=== PATIENT | female | born 1940 | race Caucasian/White ===

== ENCOUNTER 2017-04-18 11:39 | Emergency (ER) | payer BC, MEDICARE ==
[~2017-04-18] VITALS: Ht 137.2 cm; Wt 53.0 kg
[2017-04-18 13:00] LABS: BASOPHILS # (AUTO) 0.1 X10'3 (0-0.2); BASOPHILS % (AUTO) 0.6 % (0-1); EOSINOPHILS # (AUTO) 0.5 X10'3 (0-0.9); HEMATOCRIT 43.7 % (35.0-45.0); LYMPHOCYTES # (AUTO) 3.5 X10'3 (1.1-4.8); LYMPHOCYTES % (AUTO) 28.6 % (21-51); MEAN CORPUSCULAR HEMOGLOBIN 30.9 PG (27.0-31.0); MEAN CORPUSCULAR HGB CONC 34.3 % (33.0-36.5); MEAN PLATELET VOLUME 9.7 FL (7.4-10.4); MONOCYTES # (AUTO) 1.1 X10'3 (0-0.9); MONOCYTES % (AUTO) 8.9 % (2-12); NEUTROPHILS # (AUTO) 7.1 X10'3 (1.8-7.7); NEUTROPHILS % (AUTO) 57.9 % (42-75); PLATELET COUNT 238 X10'3 (140-440); RED BLOOD COUNT 4.85 X10'6 (4.20-5.60); RED CELL DISTRIBUTION WIDTH 12.3 % (11.5-14.5); WHITE BLOOD COUNT 12.3 X10'3 (4.5-11.0)
[2017-04-18 13:31] LABS: ALANINE AMINOTRANSFERASE 23 U/L (12-78); ALBUMIN 3.7 G/DL (3.4-5.0); ALBUMIN/GLOBULIN RATIO 0.8 (1.1-1.5); ALKALINE PHOSPHATASE 101 IU/L (46-116); ANION GAP 6 (8-16); ASPARTATE AMINO TRANSFERASE 17 U/L (10-37); BILIRUBIN,TOTAL 0.3 MG/DL (0.1-1.0); BLOOD UREA NITROGEN 31 MG/DL (7-18); BUN/CREATININE RATIO 37.3 (6.6-38.0); CALCIUM 9.8 MG/DL (8.5-10.1); CHLORIDE 104 MMOL/L (99-107); CREATININE 0.83 MG/DL (0.40-0.90); GLUCOSE 94 MG/DL (70-104); POTASSIUM 4.2 MMOL/L (3.5-5.1); SODIUM 141 MMOL/L (135-145); TOTAL CARBON DIOXIDE 30.7 MMOL/L (24-32); TOTAL PROTEIN 8.3 G/DL (6.4-8.2); eGFR 67 ML/MIN
[2017-04-18 13:52] VITALS: BP 167/81
== END 2017-04-18 13:53 | disposition home or self-care (01) ==
LOC: ER 11:39
DX: R60.0 Localized edema (principal); I10 Essential (primary) hypertension; J44.9 Chronic obstructive pulmonary disease, unspecified; G89.29 Other chronic pain; M06.9 Rheumatoid arthritis, unspecified; Z87.891 Personal history of nicotine dependence
CPT/HCPCS: 36415; 71045; 80053; 83880; 84484; 85025; 93005; 99285

== ENCOUNTER 2018-02-13 13:08 | Emergency (ER) | payer BC ==
[~2018-02-13] VITALS: Ht 137.2 cm; Wt 54.1 kg
[2018-02-13 13:11] VITALS: BP 153/74
--- NOTE | 2018-02-13 13:34 | NUR ---
pt to xray.
[2018-02-13] MEDS ORDERED: OXYC-145 PO (14:10)
== END 2018-02-13 14:23 | disposition home or self-care (01) ==
LOC: ER 13:08
DX: R07.89 Other chest pain (principal); I10 Essential (primary) hypertension; J44.9 Chronic obstructive pulmonary disease, unspecified; G89.29 Other chronic pain; Z88.8 Allergy status to other drugs, medicaments and biological substances; Z79.899 Other long term (current) drug therapy
CPT/HCPCS: 71101; 99284

== ENCOUNTER 2018-09-20 00:50 | Emergency (ER) | payer BC ==
[~2018-09-20] VITALS: Ht 137.2 cm; Wt 55.3 kg
[~2018-09-20 00:50] MED LIST: OXYC-145 PO
[2018-09-20 00:52] VITALS: BP 150/69
[2018-09-20] MEDS ORDERED: METH500T PO (01:09)
[2018-09-20] MEDS ORDERED: VAL5T PO (01:09)
== END 2018-09-20 01:29 | disposition home or self-care (01) ==
LOC: ER 00:50
DX: M62.830 Muscle spasm of back (principal); M54.6 Pain in thoracic spine; M54.5 Low back pain; I10 Essential (primary) hypertension; J44.9 Chronic obstructive pulmonary disease, unspecified; G89.29 Other chronic pain; M06.9 Rheumatoid arthritis, unspecified; Z88.1 Allergy status to other antibiotic agents; Z79.899 Other long term (current) drug therapy
CPT/HCPCS: 99283

== ENCOUNTER 2019-04-12 12:48 | Emergency (ER) | payer BC ==
[~2019-04-12 12:48] MED LIST changes: +METH500T PO
[2019-04-12 13:23] LABS: BASOPHILS # (AUTO) 0.1 X10'3 (0-0.2); BASOPHILS % (AUTO) 0.4 % (0-1); EOSINOPHILS # (AUTO) 0.2 X10'3 (0-0.9); EOSINOPHILS % (AUTO) 1.7 % (0-6); HEMOGLOBIN 12.7 g/dl (12.0-16.0); LYMPHOCYTES % (AUTO) 15.8 % (21-51); MEAN CORPUSCULAR HEMOGLOBIN 31.1 PG (27.0-31.0); MEAN CORPUSCULAR HGB CONC 33.4 g/dL (33.0-36.5); MEAN PLATELET VOLUME 9.3 FL (7.4-10.4); MONOCYTES % (AUTO) 7.7 % (2-12); NEUTROPHILS # (AUTO) 9.5 X10'3 (1.8-7.7); NEUTROPHILS % (AUTO) 74.4 % (42-75); PLATELET COUNT 216 X10'3 (140-440); RED BLOOD COUNT 4.09 X10'6 (4.20-5.60); RED CELL DISTRIBUTION WIDTH 12.5 % (11.5-14.5); WHITE BLOOD COUNT 12.8 X10'3 (4.5-11.0)
[2019-04-12 13:41] LABS: ALANINE AMINOTRANSFERASE 19 U/L (12-78); ALBUMIN 3.4 G/DL (3.4-5.0); ALBUMIN/GLOBULIN RATIO 0.9 (1.1-1.5); ALKALINE PHOSPHATASE 79 IU/L (46-116); ANION GAP 7 (8-16); ASPARTATE AMINO TRANSFERASE 12 U/L (10-37); BILIRUBIN,TOTAL 0.4 MG/DL (0.1-1.0); BLOOD UREA NITROGEN 41 MG/DL (7-18); BUN/CREATININE RATIO 36.9 (6.6-38.0); CALCIUM 9.2 MG/DL (8.5-10.1); CHLORIDE 104 MMOL/L (99-107); CREATININE 1.11 MG/DL (0.40-0.90); GLUCOSE 137 MG/DL (70-104); POTASSIUM 4.2 MMOL/L (3.5-5.1); SODIUM 137 MMOL/L (135-145); TOTAL CARBON DIOXIDE 25.8 MMOL/L (24-32); TOTAL PROTEIN 7.3 G/DL (6.4-8.2); eGFR 48 ML/MIN
[2019-04-12] MEDS ORDERED: diphenhydrAMINE 50 mg/ml inj IV ONE (15:15)
[2019-04-12] MEDS ORDERED: normal saline 1000ml 1,000 ML IV ONE (15:15)
[2019-04-12 17:13] VITALS: BP 153/67
[2019-04-13] MEDS ORDERED: NITR100C6 PO (14:35)
== END 2019-04-12 17:49 | disposition home or self-care (01) ==
LOC: ER 12:48
DX: E86.0 Dehydration (principal); F41.9 Anxiety disorder, unspecified; I10 Essential (primary) hypertension; J44.9 Chronic obstructive pulmonary disease, unspecified; G89.29 Other chronic pain; M06.9 Rheumatoid arthritis, unspecified; Z88.8 Allergy status to other drugs, medicaments and biological substances; Z79.899 Other long term (current) drug therapy
CPT/HCPCS: 36415; 71045; 80053; 82948; 84484; 85025; 93005; 96361; 96374; 99285; J1200; J7030

== ENCOUNTER 2019-04-14 21:12 | Emergency (ER) | payer BC ==
[~2019-04-14] VITALS: Ht 137.2 cm; Wt 57.3 kg
[~2019-04-14 21:12] MED LIST changes: +NITR100C6 PO
--- NOTE | 2019-04-14 22:37 | NUR ---
ZEESHAN Vaughn at bedside.
[2019-04-14] MEDS ORDERED: LORazepam 2 mg/ml vial IM ONE (23:00)
--- NOTE | 2019-04-14 23:52 | NUR ---
Pt is resting quietly, not talking. Respirations unlabored. NAD
[2019-04-14] MEDS ORDERED: LORA-269 PO (23:58)
[2019-04-15 00:29] VITALS: BP 150/69
== END 2019-04-15 00:36 | disposition home or self-care (01) ==
LOC: ER 21:12
DX: R25.1 Tremor, unspecified (principal); I10 Essential (primary) hypertension; J44.9 Chronic obstructive pulmonary disease, unspecified; G89.29 Other chronic pain; M06.9 Rheumatoid arthritis, unspecified; Z87.01 Personal history of pneumonia (recurrent); Z88.1 Allergy status to other antibiotic agents
CPT/HCPCS: 96372; 99283; J2060

== ENCOUNTER 2020-04-24 18:34 | Emergency (ER) | payer BC ==
[~2020-04-24] VITALS: Ht 137.2 cm; Wt 53.3 kg
[~2020-04-24 18:34] MED LIST changes: +LORA-269 PO
[2020-04-24 18:48] VITALS: BP 141/74
[2020-04-24] MEDS ORDERED: aspirin 81mg tab.chew PO ONE (18:55)
[2020-04-24 19:45] LABS: BASOPHILS # (AUTO) 0.1 X10'3 (0-0.2); BASOPHILS % (AUTO) 0.6 % (0-1); EOSINOPHILS # (AUTO) 0.3 X10'3 (0-0.9); EOSINOPHILS % (AUTO) 2.6 % (0-6); HEMATOCRIT 39.2 % (35.0-45.0); HEMOGLOBIN 12.9 g/dl (12.0-16.0); LYMPHOCYTES # (AUTO) 2.6 X10'3 (1.1-4.8); LYMPHOCYTES % (AUTO) 22.6 % (21-51); MEAN CORPUSCULAR HEMOGLOBIN 30.9 PG (27.0-31.0); MEAN CORPUSCULAR HGB CONC 32.8 g/dL (33.0-36.5); MEAN CORPUSCULAR VOLUME 94.2 FL (78-98); MEAN PLATELET VOLUME 9.5 FL (7.4-10.4); MONOCYTES # (AUTO) 1.3 X10'3 (0-0.9); NEUTROPHILS # (AUTO) 7.2 X10'3 (1.8-7.7); NEUTROPHILS % (AUTO) 63.2 % (42-75); PLATELET COUNT 204 X10'3 (140-440); RED BLOOD COUNT 4.16 X10'6 (4.20-5.60); RED CELL DISTRIBUTION WIDTH 12.6 % (11.5-14.5); WHITE BLOOD COUNT 11.5 X10'3 (4.5-11.0)
[2020-04-24 19:48] LABS: ALANINE AMINOTRANSFERASE 18 U/L (12-78); ALBUMIN 3.4 G/DL (3.4-5.0); ALBUMIN/GLOBULIN RATIO 0.9 (1.1-1.5); ALKALINE PHOSPHATASE 78 IU/L (46-116); ANION GAP 10 (8-16); ASPARTATE AMINO TRANSFERASE 17 U/L (10-37); BILIRUBIN,TOTAL 0.2 MG/DL (0.1-1.0); BLOOD UREA NITROGEN 33 MG/DL (7-18); BUN/CREATININE RATIO 24.3 (6.6-38.0); CALCIUM 9.2 MG/DL (8.5-10.1); CHLORIDE 106 MMOL/L (99-107); CREATININE 1.36 MG/DL (0.40-0.90); GLUCOSE 133 MG/DL (70-104); POTASSIUM 3.8 MMOL/L (3.5-5.1); SODIUM 142 MMOL/L (135-145); TOTAL CARBON DIOXIDE 26.5 MMOL/L (24-32); TOTAL PROTEIN 7.3 G/DL (6.4-8.2); eGFR 38 ML/MIN
[2020-04-24 19:56] LABS: MAGNESIUM 2.1 MG/DL (1.5-2.4)
== END 2020-04-24 20:35 | disposition home or self-care (01) ==
LOC: ER 18:35
DX: R00.2 Palpitations (principal); R07.89 Other chest pain; R06.02 Shortness of breath; I48.91 Unspecified atrial fibrillation; I10 Essential (primary) hypertension; J44.9 Chronic obstructive pulmonary disease, unspecified; G89.29 Other chronic pain; M81.0 Age-related osteoporosis without current pathological fracture; M06.9 Rheumatoid arthritis, unspecified; Z87.01 Personal history of pneumonia (recurrent); Z88.8 Allergy status to other drugs, medicaments and biological substances; Z79.899 Other long term (current) drug therapy
CPT/HCPCS: 36415; 71045; 80053; 83735; 83880; 84484; 85025; 93005; 99285

== ENCOUNTER 2020-07-16 00:30 | Emergency (ER) | payer BC ==
[~2020-07-16] VITALS: Ht 137.2 cm; Wt 55.1 kg
[2020-07-16 05:03] LABS: ALBUMIN 3.4 G/DL (3.4-5.0); ANION GAP 7 (8-16); BASOPHILS # (AUTO) 0.1 X10'3 (0-0.2); BLOOD UREA NITROGEN 24 MG/DL (7-18); BUN/CREATININE RATIO 21.1 (6.6-38.0); CHLORIDE 105 MMOL/L (99-107); CREATININE 1.14 MG/DL (0.40-0.90); EOSINOPHILS # (AUTO) 0.4 X10'3 (0-0.9); EOSINOPHILS % (AUTO) 4.3 % (0-6); GLUCOSE 95 MG/DL (70-104); HEMATOCRIT 40.3 % (35.0-45.0); HEMOGLOBIN 13.5 g/dl (12.0-16.0); LYMPHOCYTES # (AUTO) 2.2 X10'3 (1.1-4.8); MAGNESIUM 2.2 MG/DL (1.5-2.4); MEAN CORPUSCULAR HGB CONC 33.4 g/dL (33.0-36.5); MEAN CORPUSCULAR VOLUME 92.8 FL (78-98); MEAN PLATELET VOLUME 9.4 FL (7.4-10.4); MONOCYTES # (AUTO) 0.9 X10'3 (0-0.9); MONOCYTES % (AUTO) 10.5 % (2-12); NEUTROPHILS # (AUTO) 5.2 X10'3 (1.8-7.7); NEUTROPHILS % (AUTO) 59.2 % (42-75); PLATELET COUNT 205 X10'3 (140-440); POTASSIUM 3.9 MMOL/L (3.5-5.1); RED BLOOD COUNT 4.34 X10'6 (4.20-5.60); RED CELL DISTRIBUTION WIDTH 13.3 % (11.5-14.5); SODIUM 141 MMOL/L (135-145); TOTAL CARBON DIOXIDE 29.1 MMOL/L (24-32); WHITE BLOOD COUNT 8.8 X10'3 (4.5-11.0); eGFR 46 ML/MIN
[2020-07-16 05:11] LABS: CALCIUM 9.1 MG/DL (8.5-10.1)
[2020-07-16 05:40] VITALS: BP 189/91
== END 2020-07-16 05:43 | disposition home or self-care (01) ==
LOC: ER 00:31
DX: I48.0 Paroxysmal atrial fibrillation (principal); J44.9 Chronic obstructive pulmonary disease, unspecified; M81.0 Age-related osteoporosis without current pathological fracture; G89.29 Other chronic pain; M06.9 Rheumatoid arthritis, unspecified; I10 Essential (primary) hypertension; Z87.891 Personal history of nicotine dependence; Z88.1 Allergy status to other antibiotic agents; Z79.899 Other long term (current) drug therapy; Z87.01 Personal history of pneumonia (recurrent)
CPT/HCPCS: 36415; 71045; 80048; 83735; 85025; 93005; 99285

== ENCOUNTER 2020-10-09 19:28 | Emergency (ER) | payer BC ==
[~2020-10-09] VITALS: Ht 137.2 cm; Wt 54.5 kg
[2020-10-09] MEDS ORDERED: lisinopril 10 MG tablet PO ONE (20:40)
[2020-10-09 21:46] VITALS: BP 182/85
== END 2020-10-09 21:55 | disposition home or self-care (01) ==
LOC: ER 19:29
DX: I10 Essential (primary) hypertension (principal); J44.9 Chronic obstructive pulmonary disease, unspecified; G89.29 Other chronic pain; Z87.01 Personal history of pneumonia (recurrent); Z88.1 Allergy status to other antibiotic agents; Z79.899 Other long term (current) drug therapy
CPT/HCPCS: 93005; 99283

== ENCOUNTER 2022-04-06 10:45 | Emergency (ER) | payer BC ==
[~2022-04-06] VITALS: Ht 137.2 cm; Wt 56.8 kg
[2022-04-06] MEDS ORDERED: lisinopril 10 MG tablet PO ONE (11:30)
[2022-04-06 13:15] VITALS: BP 185/81
== END 2022-04-06 13:00 | disposition home or self-care (01) ==
LOC: ER 10:45
DX: I10 Essential (primary) hypertension (principal); I11.9 Hypertensive heart disease without heart failure; J44.9 Chronic obstructive pulmonary disease, unspecified; Z88.1 Allergy status to other antibiotic agents; Z79.899 Other long term (current) drug therapy
CPT/HCPCS: 93005; 99283

== ENCOUNTER 2022-04-23 19:06 | Emergency (ER) | payer BC ==
[~2022-04-23] VITALS: Ht 137.2 cm; Wt 57.6 kg
[2022-04-23 20:08] LABS: BASOPHILS # (AUTO) 0.1 X10'3 (0-0.2); BASOPHILS % (AUTO) 0.8 % (0-1); EOSINOPHILS # (AUTO) 0.5 X10'3 (0-0.9); EOSINOPHILS % (AUTO) 3.3 % (0-6); HEMATOCRIT 42.4 % (35.0-45.0); LYMPHOCYTES # (AUTO) 2.2 X10'3 (1.1-4.8); LYMPHOCYTES % (AUTO) 13.9 % (21-51); MEAN CORPUSCULAR HEMOGLOBIN 29.7 PG (27.0-31.0); MEAN CORPUSCULAR VOLUME 89.9 FL (78-98); MEAN PLATELET VOLUME 8.7 FL (7.4-10.4); MONOCYTES # (AUTO) 1.2 X10'3 (0-0.9); MONOCYTES % (AUTO) 7.4 % (2-12); NEUTROPHILS # (AUTO) 11.8 X10'3 (1.8-7.7); NEUTROPHILS % (AUTO) 74.6 % (42-75); PLATELET COUNT 249 X10'3 (140-440); RED BLOOD COUNT 4.71 X10'6 (4.20-5.60); RED CELL DISTRIBUTION WIDTH 13.4 % (11.5-14.5); WHITE BLOOD COUNT 15.7 X10'3 (4.5-11.0)
[2022-04-23 20:23] LABS: ALANINE AMINOTRANSFERASE 14 U/L (12-78); ALBUMIN 3.8 G/DL (3.4-5.0); ALBUMIN/GLOBULIN RATIO 0.8 (1.1-1.5); ALKALINE PHOSPHATASE 119 IU/L (46-116); ANION GAP 10 (8-16); ASPARTATE AMINO TRANSFERASE 23 U/L (10-37); BILIRUBIN,TOTAL 0.4 MG/DL (0.1-1.0); BLOOD UREA NITROGEN 37 MG/DL (7-18); BUN/CREATININE RATIO 29.8 (6.6-38.0); CALCIUM 9.5 MG/DL (8.5-10.1); CHLORIDE 104 MMOL/L (99-107); CREATININE 1.24 MG/DL (0.40-0.90); GLUCOSE 111 MG/DL (70-104); POTASSIUM 4.5 MMOL/L (3.5-5.1); SODIUM 140 MMOL/L (135-145); TOTAL CARBON DIOXIDE 26.3 MMOL/L (24-32); TOTAL PROTEIN 8.3 G/DL (6.4-8.2); eGFR 42 ML/MIN
[2022-04-24] MEDS ORDERED: cloNIDine 0.1 mg tablet PO ONE (00:25)
[2022-04-24 01:00] VITALS: BP_DIAS 75
[2022-04-24] MEDS ORDERED: CLON-418 PO (01:29)
[2022-04-24 01:42] VITALS: BP_SYST 134
== END 2022-04-24 01:47 | disposition home or self-care (01) ==
LOC: ER 19:06
DX: I10 Essential (primary) hypertension (principal); J44.9 Chronic obstructive pulmonary disease, unspecified; Z88.1 Allergy status to other antibiotic agents
CPT/HCPCS: 36415; 71045; 80053; 83880; 84484; 85025; 93005; 99285

== ENCOUNTER 2022-10-01 19:25 | Inpatient (IN) | payer BC ==
[~2022-10-01] VITALS: Ht 139.7 cm; Wt 49.1 kg
[~2022-10-01 19:25] MED LIST changes: +CLON-418 PO
[2022-10-01 19:48] LABS: BASOPHILS # (AUTO) 0.1 X10'3 (0-0.2); EOSINOPHILS # (AUTO) 0.3 X10'3 (0-0.9); EOSINOPHILS % (AUTO) 2.4 % (0-6); HEMATOCRIT 43.7 % (35.0-45.0); HEMOGLOBIN 14.4 g/dl (12.0-16.0); LYMPHOCYTES # (AUTO) 3.1 X10'3 (1.1-4.8); LYMPHOCYTES % (AUTO) 24.6 % (21-51); MEAN CORPUSCULAR HEMOGLOBIN 30.7 PG (27.0-31.0); MEAN CORPUSCULAR VOLUME 93.1 FL (78-98); MEAN PLATELET VOLUME 10.1 FL (7.4-10.4); MONOCYTES # (AUTO) 1.1 X10'3 (0-0.9); MONOCYTES % (AUTO) 8.7 % (2-12); NEUTROPHILS % (AUTO) 63.3 % (42-75); PLATELET COUNT 264 X10'3 (140-440); RED BLOOD COUNT 4.69 X10'6 (4.20-5.60); RED CELL DISTRIBUTION WIDTH 13.9 % (11.5-14.5); WHITE BLOOD COUNT 12.7 X10'3 (4.5-11.0)
[2022-10-01] MEDS: normal saline 1000ml 1,000 ML IV SCH ×4 (19:48→23:50)
[2022-10-01] MEDS ORDERED: diltiazem 5mg/ml 5ml inj. IV ONE ×2 (19:50)
[2022-10-01] MEDS ORDERED: diltiazem-NS 100mg/100ml 100 ML IV PRN (20:00)
--- NOTE | 2022-10-01 20:10 | NUR ---
Dr Cunningham asked dfor a repeat EKG
[2022-10-01 20:19] LABS: ALANINE AMINOTRANSFERASE 15 U/L (12-78); ALBUMIN 3.4 G/DL (3.4-5.0); ALKALINE PHOSPHATASE 128 IU/L (46-116); ANION GAP 11 (8-16); ASPARTATE AMINO TRANSFERASE 17 U/L (10-37); BILIRUBIN,TOTAL 0.3 MG/DL (0.1-1.0); BLOOD UREA NITROGEN 40 MG/DL (7-18); BUN/CREATININE RATIO 34.8 (10.0-20.0); CALCIUM 9.6 MG/DL (8.5-10.1); CHLORIDE 107 MMOL/L (99-107); CREATININE 1.15 MG/DL (0.40-0.90); GLUCOSE 108 MG/DL (70-104); POTASSIUM 4.5 MMOL/L (3.5-5.1); SODIUM 142 MMOL/L (135-145); TOTAL CARBON DIOXIDE 24.3 MMOL/L (24-32); TOTAL PROTEIN 6.9 G/DL (6.4-8.2); eCRCL 21 ML/MIN; eGFR 46 ML/MIN
[2022-10-01 20:27] LABS: MAGNESIUM 1.9 MG/DL (1.5-2.4); PRO BRAIN NATRIURETIC PEPTIDE 656 PG/ML (0-450)
[2022-10-01 20:32] LABS: APTT 25 SECONDS (22-32); PROTHROMBIN TIME 10.3 SECONDS (9.0-12.0)
[2022-10-01] MEDS ORDERED: aspirin 81mg tab.chew PO ONE (22:15)
[2022-10-01] MEDS ORDERED: potassium Cl 40MEQ/1/2NS 520ml 520 ML IV PRN (23:35)
[2022-10-01] MEDS ORDERED: ondansetron/PF 4mg/2ml inj IV PRN (23:35)
[2022-10-01] MEDS ORDERED: mag hydrox/Alum hydrox/simeth 30ml oral suspension PO PRN (23:35)
[2022-10-01] MEDS ORDERED: magnesium 2GM in 50ml NS 50 ML IV PRN (23:35)
[2022-10-01] MEDS ORDERED: magnesium 4gm in 100ml NS 100 ML IV PRN (23:35)
[2022-10-01] MEDS ORDERED: potassium Cl 20 mEq SR tablet PO PRN ×2 (23:35)
[2022-10-01] MEDS ORDERED: acetaminophen 325mg tablet PO PRN (23:35)
--- NOTE | 2022-10-01 23:52 | NUR ---
ED BED 15--HR WELL CONTROLLED IN 60S DO YOU STILL WANT EVAN BOWMAN? [id number] PAGE SENT TO DR LIN
[2022-10-02] MEDS ORDERED: LISI20TA28 PO (00:05)
[2022-10-02] MEDS ORDERED: CELE-85 PO (00:05)
[2022-10-02] MEDS ORDERED: FLO0.1T PO (00:05)
[2022-10-02] MEDS ORDERED: FLUT1BLS10 PO (00:05)
[2022-10-02] MEDS ORDERED: DILT-96 PO (00:05)
[2022-10-02] MEDS ORDERED: HYDR5TAB14 PO (00:05)
[2022-10-02] MEDS ORDERED: CITA10TA15 PO (00:45)
--- NOTE | 2022-10-02 01:30 | NUR ---
ED BED 15--TROPONIN 64 [id number]
--- NOTE | 2022-10-02 01:31 | NUR ---
DR LIN AWARE OF POSITIVE TROPONIN, NO NEW ORDERS
[2022-10-02 03:06] VITALS: PULSE 65; RESP 16; O2SAT 97
--- NOTE | 2022-10-02 03:19 | NUR ---
PT PLACED ON HOSPITAL BED
[2022-10-02 07:44] VITALS: TEMP 97.9
[2022-10-02] MEDS ORDERED: budesonide 0.5mg/2ml UD nebule IH SCH (08:00)
[2022-10-02] MEDS ORDERED: apixaban 5mg tablet PO SCH (08:00)
[2022-10-02] MEDS ORDERED: hydrocortisone 10mg tablet PO SCH (08:00)
[2022-10-02] MEDS: albuterol 2.5 MG/3 ML nebule NEB SCH ×2 (08:00→14:00)
[2022-10-02] MEDS ORDERED: diltiazem CD 120mg capsule (once-daily) PO SCH (08:00)
[2022-10-02] MEDS ORDERED: fludrocortisone acetate 0.1mg tablet PO SCH (08:00)
[2022-10-02] MEDS ORDERED: docusate sod 100mg capsule PO SCH (08:00)
[2022-10-02] MEDS ORDERED: K and/or MAG REPLACEMENT MC SCH (08:00)
[2022-10-02] MEDS ORDERED: lisinopril 20mg tablet PO SCH (08:00)
[2022-10-02] MEDS ORDERED: normal saline 1000ml 1,000 ML IV SCH (08:50)
[2022-10-02 08:54] VITALS: PULSE 56; RESP 16; O2SAT 96
[2022-10-02 09:05] VITALS: PULSE 61; RESP 16
[2022-10-02 09:58] LABS: BASOPHILS # (AUTO) 0.1 X10'3 (0-0.2); BASOPHILS % (AUTO) 0.9 % (0-1); EOSINOPHILS # (AUTO) 0.3 X10'3 (0-0.9); EOSINOPHILS % (AUTO) 3.4 % (0-6); HEMATOCRIT 38.2 % (35.0-45.0); HEMOGLOBIN 12.6 g/dl (12.0-16.0); LYMPHOCYTES # (AUTO) 2.6 X10'3 (1.1-4.8); LYMPHOCYTES % (AUTO) 27.1 % (21-51); MEAN CORPUSCULAR HEMOGLOBIN 30.7 PG (27.0-31.0); MEAN CORPUSCULAR HGB CONC 32.9 g/dL (33.0-36.5); MEAN CORPUSCULAR VOLUME 93.2 FL (78-98); MONOCYTES # (AUTO) 0.9 X10'3 (0-0.9); MONOCYTES % (AUTO) 9.3 % (2-12); NEUTROPHILS # (AUTO) 5.8 X10'3 (1.8-7.7); NEUTROPHILS % (AUTO) 59.3 % (42-75); PLATELET COUNT 215 X10'3 (140-440); RED CELL DISTRIBUTION WIDTH 13.5 % (11.5-14.5); WHITE BLOOD COUNT 9.8 X10'3 (4.5-11.0)
[2022-10-02 10:24] LABS: ALANINE AMINOTRANSFERASE 18 U/L (12-78); ALBUMIN 2.7 G/DL (3.4-5.0); ALBUMIN/GLOBULIN RATIO 0.8 (1.1-1.5); ALKALINE PHOSPHATASE 96 IU/L (46-116); ANION GAP 6 (8-16); ASPARTATE AMINO TRANSFERASE 16 U/L (10-37); BILIRUBIN,TOTAL 0.4 MG/DL (0.1-1.0); BLOOD UREA NITROGEN 28 MG/DL (7-18); BUN/CREATININE RATIO 28.3 (10.0-20.0); CALCIUM 8.6 MG/DL (8.5-10.1); CHLORIDE 110 MMOL/L (99-107); CREATININE 0.99 MG/DL (0.40-0.90); GLUCOSE 93 MG/DL (70-104); MAGNESIUM 1.6 MG/DL (1.5-2.4); POTASSIUM 3.8 MMOL/L (3.5-5.1); SODIUM 142 MMOL/L (135-145); TOTAL PROTEIN 5.9 G/DL (6.4-8.2); eCRCL 25 ML/MIN; eGFR 54 ML/MIN
[2022-10-02] MEDS: normal saline 1000ml 1,000 ML IV SCH (12:08)
[2022-10-02] MEDS ORDERED: APIX5TAB3 PO (13:32)
[2022-10-02 14:58] VITALS: BP 164/74; PULSE 54; RESP 16; O2SAT 94
[2022-10-02] MEDS ORDERED: CITALOpram 10mg tablet PO SCH (21:00)
== END 2022-10-02 16:05 | disposition home or self-care (01) | DRG 309 ==
LOC: ER 19:25 → ED HOLD 23:39
PROVIDERS: ADMIT Family Medicine; ATTEND Family Medicine
DX: I48.0 Paroxysmal atrial fibrillation (principal); E27.40 Unspecified adrenocortical insufficiency; J44.9 Chronic obstructive pulmonary disease, unspecified; D72.829 Elevated white blood cell count, unspecified; I10 Essential (primary) hypertension; M06.9 Rheumatoid arthritis, unspecified; M81.0 Age-related osteoporosis without current pathological fracture; N28.9 Disorder of kidney and ureter, unspecified; Z96.641 Presence of right artificial hip joint; G89.29 Other chronic pain; Z79.01 Long term (current) use of anticoagulants; Z88.8 Allergy status to other drugs, medicaments and biological substances; Z79.899 Other long term (current) drug therapy; Z87.891 Personal history of nicotine dependence
CPT/HCPCS: 36415; 71045; 80053; 83735; 83880; 84484; 85025; 85610; 85730; 93005; 93306; 94640; 94760; 99285; G0378; J3490; J7030

== ENCOUNTER 2023-01-24 22:12 | Emergency (ER) | payer BC ==
[~2023-01-24] VITALS: Ht 137.2 cm; Wt 50.1 kg
[~2023-01-24 22:12] MED LIST changes: +APIX5TAB3 PO; +CITA10TA15 PO; -CLON-418 PO; +DILT-96 PO; +FLO0.1T PO; +FLUT1BLS10 PO; +HYDR5TAB14 PO; +LISI20TA28 PO; -LORA-269 PO; -METH500T PO; -NITR100C6 PO; -OXYC-145 PO
[2023-01-25 01:19] VITALS: BP 146/78; PULSE 78; RESP 16; TEMP 98.1; O2SAT 94
== END 2023-01-25 01:16 | disposition home or self-care (01) ==
LOC: ER 22:14
DX: I11.0 Hypertensive heart disease with heart failure (principal); R51.9 Headache, unspecified; G89.29 Other chronic pain; Z88.1 Allergy status to other antibiotic agents; Z79.899 Other long term (current) drug therapy
CPT/HCPCS: 99281

== ENCOUNTER 2024-08-11 17:48 | Emergency (ER) | payer BC ==
[~2024-08-11] VITALS: Ht 137.2 cm; Wt 46.5 kg
[~2024-08-11 17:48] MED LIST changes: +APIX2.5T PO; -APIX5TAB3 PO; +ASPI-1265 PO; +DILT-94 PO; -DILT-96 PO; -FLO0.1T PO; +FLUD0.1T PO; -FLUT1BLS10 PO; +FLUT1BLS13 INH; +HYDR-4318 PO; -HYDR5TAB14 PO; +SOLI5TAB8 PO
[2024-08-11 17:50] VITALS: BP 126/84; PULSE 75; RESP 15; TEMP 97.1; O2SAT 95
--- NOTE | 2024-08-11 18:45 | Physician Documentation ---
History of Present Illness ~ Chief Complaint: Constipation Stated Complaint: BOWEL ISSUES Time Seen by MD: 18:01 Primary Medical Doctor: Chilango Rosales [facility] This is an 83-year-old female who presents with three days of constipation with the last bowel movement three days prior, patient reports in the last month that she has had very hard stools. Patient reports that due to having hard stools she has decreased her fiber intake. Patient does report she feels like she does not drink enough water. Patient reports no fever, abdominal pain, or vomiting. Patient reports that she is still passing gas. Medication Reconciliation Allergies: Coded Allergies: levofloxacin (Verified Allergy, Unknown, RASH, 08/11/24) Scheduled Apixaban (Eliquis), 2.5 MG PO BID Aspirin (Aspirin), 1 TAB PO DAILY Citalopram Hydrobromide (Citalopram HBr), 15 MG PO HS, (Reported) Diltiazem HCl (Diltiazem 24Hr ER), 1 CAP PO DAILY, (Reported) Docusate Sodium (Docusate Sodium), 1 CAP PO DAILY Fludrocortisone Acetate (Fludrocortisone Acetate), 1 TAB PO DAILY, (Reported) Fluticasone Propion/Salmeterol (Fluticasone-Salmeterol 250-50), 1 PUFFS INH BID, (Reported) Glycerin (Glycerin), 1 SUPP RC Q48H Hydrocortisone (Hydrocortisone), 1 TAB PO BID, (Reported) Lisinopril (Lisinopril), 1 TAB PO DAILY, (Reported) Polyethylene Glycol 3350 (Miralax), 17 GM PO DAILY Solifenacin Succinate (Solifenacin Succinate), 1 TAB PO DAILY, (Reported) Past Medical History Past Medical History: Atrial Fibrillation, Hypertension, COPD, Pneumonia, Chronic Pain, Osteoporosis, Rheumatoid Arthritis Past Surgical History: orthopedic surgeries Patient History: Patient reports no known family medical history. Alcohol Use: None Drug Use: none Lives with: Family Lives In: Home Review of Systems ROS Constipation as stated above in the HPI, otherwise all systems are reviewed and negative. Physical Exam Vital Signs: Temperature: 97.1, Source: Temporal, Heart Rate: 75, Respiratory Rate: 15, BP: 126/84, Pulse Oximetry: 95, Weight: 46.550 Physical Exam VITALS: Reviewed and as above. GENERAL: Alert, nontoxic appearing, no apparent distress. RESPIRATORY: No increased work of breathing, no respiratory distress, speaking in full clear sentences, clear lung sounds in all cowan CV: Regular rate and rhythm no murmur GI: Soft, nondistended, nontender, no rebound, no guarding, bowel sounds present Progress Results/Orders Results/Orders Vital Signs 08/11/24 17:50 Temp 97.1 Pulse 75 Resp 15 B/P (MAP) 126/84 Pulse Ox 95 Medical Decision Making Findings This 83-year-old female presented with hard stools and constipation with last bowel movement three days prior. Patient is otherwise well-appearing with no abdominal pain, believe constipation is related to patient's decrease in fiber him taken poor fluid intake. Patient has been advised to increase fiber and fluid intake. Patient offered the option to have treatment for constipation to the emergency department and we have for her have a bowel movement however she prefers to treat constipation comfort her own home. Patient is sent prescription for laxatives and stool softeners. Physical exam was benign no peritoneal signs, additionally reassuring patient is passing gas, I have very low suspicion for stool impaction or bowel obstruction. Patient is appropriate for outpatient follow up. Patient provided home care instructions, return to care precautions, and follow up instructions which he verbalized understanding of. Diff Dx N/V/D:Considerations: Include: Appendicitis, Bowel obstruction, Dehydration, Diverticulosis, Impaction Departure Disposition: 01 HOME / SELF CARE / HOMELESS Impression: Primary Impression: Constipation Qualified Codes: K59.00 - Constipation, unspecified Condition: Improved Discharge Instructions: Constipation, Adult Additional Instructions: Please increase your fluid and fiber intake, you may consider utilizing a fiber supplement. Please use the prescribed stool softeners daily. Please use the prescribed laxative and suppositories until you a bowel movement. If you continue to you to not have a bowel movement or you develop abdominal pain please return to the emergency department. Please follow up with your primary care provider in the next few days. Please return to the emergency department for any new or worsening concerning symptoms. Referrals: NO PRIMARY CARE PROVIDER (PCP) Prescriptions Glycerin (Glycerin) Pediatric Supp.rect 1 SUPP RC Q48H for 7 Days, #15 SUPP 0 Refills Prov: HARSHAL ATKINSON [employer] 08/11/24 Polyethylene Glycol 3350 (Miralax) 17 Gram/Dose Powder 17 GM PO DAILY for constipation, #255 GM 0 Refills dissolve in water Prov: HARSHAL ATKINSON 08/11/24 Docusate Sodium (Docusate Sodium) 100 Mg Caps 1 CAP PO DAILY for constipation for 30 Days, #30 CAP 0 Refills Prov: HARSHAL ATKINSON [employer] 08/11/24 Education Educated: Patient Educated regarding: diagnosis, treatment, prognosis, need for follow up Signature Scribe Signature: No scribe Attestation: The note accurately reflects work and decisions made by me.MINA Chong 08/11/24 20:48 HARSHAL ATKINSON [facility] Aug 11, 2024 18:45
[2024-08-11] MEDS ORDERED: GLYC-23 RC (18:48)
[2024-08-11] MEDS ORDERED: DOCU100C40 PO (18:48)
[2024-08-11] MEDS ORDERED: POLY119P2 PO (18:48)
== END 2024-08-11 19:01 | disposition home or self-care (01) ==
LOC: ER 17:48
DX: K59.00 Constipation, unspecified (principal); I10 Essential (primary) hypertension; I48.91 Unspecified atrial fibrillation; J44.9 Chronic obstructive pulmonary disease, unspecified; M06.9 Rheumatoid arthritis, unspecified; M81.0 Age-related osteoporosis without current pathological fracture; Z88.1 Allergy status to other antibiotic agents; Z79.82 Long term (current) use of aspirin; Z88.8 Allergy status to other drugs, medicaments and biological substances
CPT/HCPCS: 99282

== ENCOUNTER 2025-01-28 06:01 | Inpatient (IN) | payer BC ==
[~2025-01-28] VITALS: Ht 137.2 cm; Wt 52.0 kg
[~2025-01-28 06:01] MED LIST changes: +DOCU100C40 PO; +GLYC-23 RC; +POLY119P2 PO
--- NOTE | 2025-01-28 06:21 | ELECTROCARDIOGRAPH REPORT ---
[facility] Test Date: 2025-01-28 Test Time: 06:20:23 Pat Name: MELINA SZYMANSKI Department: [facility]- Patient ID: [facility]-[id number] Room: [place] [id number] Gender: F Physician Interventional Cardiologist: MODESTA : 1940 Requested By: NIKOLAI EASTON Order Number: [id number] Reading MD: Dr. Piotr Cunningham Measurements Intervals Jackson Rate: 70 P: 0 MN: 0 QRS: -14 QRSD: 79 T: 72 QT: 393 QTc: 425 Interpretive Statements Atrial fibrillation Consider left ventricular hypertrophy Electronically Signed On 02-01-2025 0:20:[address] Piotr Cunningham Please click the below link to view image of tracing.
--- NOTE | 2025-01-28 07:14 | RADIOLOGY REPORT ---
CHEST RADIOGRAPH INDICATION: Cough TECHNIQUE: Two views of the chest was obtained. COMPARISON: DI CHEST,SINGLE VIEW on DOS: 05/15/24, DI CHEST,SINGLE VIEW on DOS: 10/01/22 FINDINGS: Patchy right basilar opacities. No significant pleural effusion. No pneumothorax. Stable cardiomediastinal silhouette. IMPRESSION: Patchy right basilar opacities may represent atelectasis versus developing pneumonia.
[2025-01-28 09:10] LABS: CREATININE 1.35 MG/DL (0.40-0.90); PRO BRAIN NATRIURETIC PEPTIDE 259 PG/ML (0-450); TOTAL CARBON DIOXIDE 25.3 MMOL/L (24-32); eCRCL 16 ML/MIN; eGFR 38 ML/MIN
[2025-01-28 10:06] LABS: MEAN PLATELET VOLUME 9.2 FL (7.4-10.4); RED CELL DISTRIBUTION WIDTH 13.5 % (11.5-14.5)
--- NOTE | 2025-01-28 10:37 | Physician Documentation ---
History of Present Illness ~ Chief Complaint: Weakness Stated Complaint: MULTIPLE ISSUES Time Seen by MD: 10:23 OK to notify your PCP?: Yes Primary Medical Doctor: Chilango JACOBS The patient is a an 84-year-old female with a history of COPD (she has an oxygen concentrator that she uses as needed), atrial fibrillation (takes diltiazem but no blood thinners) who has been feeling weak and dizzy for the past few days. She denies any falls. Medication Reconciliation Allergies: Coded Allergies: levofloxacin (Verified Allergy, Unknown, RASH, 08/11/24) Scheduled Apixaban (Eliquis), 2.5 MG PO BID Aspirin (Aspirin), 1 TAB PO DAILY Citalopram Hydrobromide (Citalopram HBr), 15 MG PO HS, (Reported) Diltiazem HCl (Diltiazem 24Hr ER), 1 CAP PO DAILY, (Reported) Docusate Sodium (Docusate Sodium), 1 CAP PO DAILY Fludrocortisone Acetate (Fludrocortisone Acetate), 1 TAB PO DAILY, (Reported) Fluticasone Propion/Salmeterol (Fluticasone-Salmeterol 250-50), 1 PUFFS INH BID, (Reported) Glycerin (Glycerin), 1 SUPP RC Q48H Hydrocortisone (Hydrocortisone), 1 TAB PO BID, (Reported) Lisinopril (Lisinopril), 1 TAB PO DAILY, (Reported) Polyethylene Glycol 3350 (Miralax), 17 GM PO DAILY Solifenacin Succinate (Solifenacin Succinate), 1 TAB PO DAILY, (Reported) Past Medical History Past Medical History: Atrial Fibrillation, Hypertension, COPD, Pneumonia, Chronic Pain, Osteoporosis, Rheumatoid Arthritis Past Surgical History: orthopedic surgeries Patient History: Patient reports no known family medical history. Alcohol Use: None Drug Use: none Lives with: Family Lives In: Home Physical Exam Vital Signs: Temperature: 98.0, Heart Rate: 79, Respiratory Rate: 16, BP: 153/64, Pulse Oximetry: 92, Weight: 52.000 Oxygen Flow Rate: 0 Progress Results/Orders Results/Orders Orders - MALCOLM HILARIO MD Hospitalist (01/28/25 15:16) Completed Orders - MALCOLM HILARIO MD Ceftriaxone 2gm/D5w 50ml Bag (Rocephin 2 (01/28/25 10:40) Azithromycin/Ns 500mg/250ml (Zithromax/N (01/28/25 10:40) Ipratropium/Albuterol Nebule (Ipratrop/A (01/28/25 10:37) Methylprednisolone Sod Succ/Pf (Solu-Med (01/28/25 10:37) Hydrocortisone Tablet (Hydrocortisone Ta (01/28/25 12:41) Normal Saline 1000ml (0.9% Sodium Chlori (01/28/25 15:10) Medications Received in ER Medications (Trade) Dose Ordered Sig/Octaviano Route PRN Reason Start Time Stop Time Status Last Admin Dose Admin Ceftriaxone Sodium/Dextrose 50 ml @ 100 mls/hr ONCE ONCE IV 01/28/25 10:40 01/28/25 11:09 DC 01/28/25 11:26 100 MLS/HR Azithromycin 250 ml @ 250 mls/hr ONCE ONCE IV 01/28/25 10:40 01/28/25 11:39 DC 01/28/25 12:01 250 MLS/HR (ipratrop/ albuterol 0.5-3(2.5) MG/3ml nebule) 3 ml ONCE STAT NEB 01/28/25 10:37 01/28/25 10:40 DC 01/28/25 11:07 3 ML (Solu-Medrol 40mg inj.) 80 mg ONCE STAT IV 01/28/25 10:37 01/28/25 10:40 DC 01/28/25 11:26 80 MG (hydrocortisone tablet) 10 mg ONCE STAT PO 01/28/25 12:41 01/28/25 12:48 DC 01/28/25 13:30 10 MG Sodium Chloride 1,000 ml @ 1,000 mls/hr ONCE ONCE IV 01/28/25 15:10 01/28/25 16:09 01/28/25 15:49 1,000 MLS/HR Vital Signs 01/28/25 01/28/25 01/28/25 01/28/25 06:02 10:29 11:10 11:17 Temp 98.0 Pulse 79 67 60 53 Resp 16 17 21 20 B/P (MAP) 153/64 144/60 (88) Pulse Ox 92 94 94 98 O2 Delivery Room Air* Room Air* O2 Flow Rate 0 0 0 FiO2 01/28/25 01/28/25 01/28/25 11:28 11:46 13:32 Pulse 59 72 Resp 19 21 16 B/P (MAP) 115/56 (75) 114/50 (71) Pulse Ox 94 93 Laboratory Tests Test 01/28/25 08:22 01/28/25 08:55 01/28/25 09:52 01/28/25 14:38 Sodium Level 140 Potassium Level 4.7 Chloride Level 106 Carbon Dioxide Level 25.3 Anion Gap 9 Blood Urea Nitrogen 29 H Creatinine 1.35 H Estimated GFR/1.73 m2 38 BUN/Creatinine Ratio 21.5 H Glucose Level 108 H Lactic Acid Level 1.1 Calcium Level 9.7 Pro-B-Type Natriuretic Peptide 259 Albumin 3.6 Chemistry Comments CBC Comment White Blood Count 13.5 H Red Blood Count 4.79 Hemoglobin 13.9 Hematocrit 43.1 Mean Corpuscular Volume 89.9 Mean Corpuscular Hemoglobin 29.0 Mean Corpuscular Hemoglobin Concent 32.2 L Red Cell Distribution Width 13.5 Platelet Count 325 Mean Platelet Volume 9.2 Neutrophils (%) (Auto) 77.4 H Lymphocytes (%) (Auto) 15.1 L Monocytes (%) (Auto) 5.9 Eosinophils (%) (Auto) 1.0 Basophils (%) (Auto) 0.6 Neutrophils # (Auto) 10.4 H Lymphocytes # (Auto) 2.0 Monocytes # (Auto) 0.8 Eosinophils # (Auto) 0.1 Basophils # (Auto) 0.1 Urine Specimen Description Straight cath Urine Color Yellow Urine Clarity Clear Urine pH 5.5 Urine Specific [place] 1.025 Urine Protein Negative Urine Glucose (UA) Negative Urine Ketones Negative Urine Occult Blood Negative Urine Nitrite Negative Urine Bilirubin Negative Urine Urobilinogen 0.2 Urine Leukocyte Esterase Trace H Urine RBC None seen Urine WBC 5-10 H Urine WBC Clumps Few Urine Squamous Epithelial Cells None seen Urine Renal Cells Moderate Urine Bacteria Few Urine Hyaline Casts 3-5 Urine Mucus None seen Urine Culture Indicated Indicated Volume Urine Centrifuged 10 ml Urine Comment Microbiology Date/Time Source Procedure Growth Status 01/28/25 14:48 Urine Straight Cath Urine Culture - Preliminary Culture received. Resulted 01/28/25 11:22 Blood Iv Start Blood Culture - Preliminary NEGATIVE (LESS THAN 24 HOURS) Resulted Medical Decision Making Additional information obtaine: old records Findings This 84-year-old female presents with generalized weakness, exacerbation of COPD symptoms and urinary tract infection. The chest x-ray may show early pneumonia. I have started her on antibiotics, fluids, nebs and steroids. She will require admission. Differential Dx:Considerations: Include: dehydration, electrolyte imbalance, hypovolemia, other; Unlikely: anemia, CVA, dysrhythmia, encephalopathy, Guillain-Luther, hypoglycemia, hypotension, labyrinthitis, Meniere's disease, myasathenia gravis, myocardial infarction, pulmonary embolus, renal failure, respiratory failure, TIA, VBI, vertigo central, vertigo peripheral, vestibular neuronitis Departure Disposition: ADMITTED INPATIENT Admitted to Inpatient Unit: to hospitalist Impression: Primary Impression: Sepsis Additional Impressions: UTI (urinary tract infection) Pneumonia Condition: Fair Referrals: NO PRIMARY CARE PROVIDER (PCP) Signature Scribe Signature: . Attestation: . MALCOLM HILARIO MD Jan 28, 2025 10:36
[2025-01-28] MEDS: ipratropium/albuterol 3ml nebule NEB STA (11:07)
[2025-01-28 11:10] VITALS: PULSE 60; RESP 21; O2SAT 94
[2025-01-28 11:17] VITALS: PULSE 53; RESP 20; O2SAT 98
[2025-01-28] MEDS: methylPREDNISolone sod succ/PF 40mg inj. IV STA (11:26)
[2025-01-28] MEDS: CefTRIAXone 2gm/D5W 50ml BAG 50 ML IV ONE (11:26)
[2025-01-28] MEDS: azithromycin/NS 500mg/250ml 250 ML IV ONE ×2 (12:01→17:06)
[2025-01-28 14:47] LABS: LEUKOCYTE ESTERASE ,URINE TRACE (Neg); NITRITES, URINE NEGATIVE (Neg); OCCULT BLOOD,URINE NEGATIVE (Neg)
[2025-01-28 14:48] LABS: UA COLLECTION TYPE STRAIGHT CATH
[2025-01-28 14:53] LABS: MUCUS STRANDS NONE SEEN /LPF (Neg); RENAL CELLS, URINE MODERATE /HPF; SQUAMOUS EPITHELIAL CELL,UR NONE SEEN /LPF (FEW)
[2025-01-28 14:54] LABS: WBC CLUMPS,URINE FEW /HPF (NEGATIVE)
[2025-01-28] MEDS: normal saline 1000ml 1,000 ML IV ONE (15:49)
--- NOTE | 2025-01-28 15:54 | HISTORY AND PHYSICAL ---
History & Physical Providers to CC Chief complaint, generalized weakness, fatigue ~ History of Present Illness Reason for Admit\\Complaint: As above History of Present Illness 83-year-old female with history of hypertension, AFib, rheumatoid arthritis, COPD, adrenal hyperplasia status post partial adrenalectomy on chronic steroids hydrocortisone presented to the ED with chief complaints of generalized weakness associated with fatigue x4 days. She states she was . Since the past four days she has had worsening weakness and felt lousy. On arrival she was hypoglycemic and hypotensive. She appears to be dehydrated. Apart from diarrhea she denies any complaints of chest pain, dizziness, shortness of breath, abdominal pain, fever, chills, weight loss or weight gain. Denies symptoms of UTI like burning micturition, lower belly pain, dysuria and polyuria. Her last bowel movement was four days ago when she had the diarrhea. Uses home oxygen 3 L p.r.n. specially on exertion. She lives by herself and is independent in daily activities. Quit smoking 50 years ago. Denies drinking alcohol, no recreational drugs. Discussed advanced care directives and she wishes to be a full code."The patient has a acute kidney injury on admission her creatinine was 1.73 this improved with the IV fluid resuscitation and on the day of discharge was 0.97 her acute kidney injury is possibly secondary to vasomotor nephropathy.The patient had a UTI with [place]IRS [place] [address] this normalized by the 9th the patient was treated with a three day course of IV Rocephin the patient was afebrile and a urine culture was negative.The patient has a type 2 mi due to her sirs secondary to UTI her initial high sensitivity troponin 78 peaked at 139 initially the ED provider she stated the patient had had chest pressure with the patient denied any chest pressure and did not require any further cardiac workup in regards to stress test or cardiac catheterization., however an echocardiogram was obtained which demonstrated an LVEF of 65% there were no significant findings on echocardiogram.Patient was chronic respiratory failure secondary to COPD in his on 2-3 L oxygen at home in her oxygen saturation was in the mid-to-high 90s on the day of discharge on 2 L oxygen the patient did okayed with physical therapy however physical therapy recommended that the patient use a of front wheel walker when ambulating I did inform the patient that she needs to use her front wheel walker any time that she ambulated.84-year-old female with history of hypertension, AFib, rheumatoid arthritis, COPD, adrenal hyperplasia status post partial adrenalectomy on chronic steroids hydrocortisone presented to the ED with chief complaints of generalized weakness x4 days. No diarrhea she denies any complaints of chest pain, has dizziness, shortness of breath, abdominal pain, fever, chills, weight loss or weight gain. Denies symptoms of UTI like burning micturition, lower belly pain, dysuria and polyuria. Her last bowel movement was four days ago when she had the diarrhea. Uses home oxygen 3 L p.r.n. specially on exertion. She lives by herself and is independent in daily activities. Quit smoking 50 years ago. Denies drinking alcohol, no recreational drugs. Discussed advanced care directives and she wishes to be a full code."The patient has a acute kidney injury on admission her creatinine was 1.73 this improved with the IV fluid resuscitation and on the day of discharge was 0.97 her acute kidney injury is possibly secondary to vasomotor nephropathy.The patient had a UTI with SIRS [place] [address] this normalized by the 9th the patient was treated with a three day course of IV Rocephin the patient was afebrile and a urine culture was negative.The patient has UTI echocardiogram was obtained which demonstrated an LVEF of 65% there were no significant findings on echocardiogram.Patient was chronic respiratory failure secondary to COPD in his on 2-3 L oxygen at home in her oxygen saturation was in the mid-to-high 90s on the day of discharge on 2 L oxygen the patient did okayed with physical therapy however physical therapy recommended that the patient use a of front wheel walker when ambulating I did inform the patient that she needs to use her front wheel walker any time that she ambulated. In emergency department she was evaluated by physician was diagnosed with UTI, right-sided pneumonia, acute respiratory failure, and decision was made to admit patient for further evaluation and treatment, no additional complaint or concern. Allergies: Coded Allergies: levofloxacin (Verified Allergy, Unknown, RASH, 08/11/24) Home Medications Home Medications Active Glycerin Pediatric Supp.rect 1 Supp RC Q48H 7 Days Miralax (Polyethylene Glycol 3350) 17 Gram/Dose Powder 17 Gm PO DAILY dissolve in water Docusate Sodium 100 Mg Caps 1 Cap PO DAILY 30 Days Eliquis (Apixaban) 2.5 Mg Tablet 2.5 Mg PO BID Aspirin 81 Mg Tab.chew 1 Tab PO DAILY Reported Fludrocortisone Acetate 0.1 Mg Tablet 1 Tab PO DAILY Hydrocortisone 10 Mg Tablet 1 Tab PO BID Solifenacin Succinate 5 Mg Tablet 1 Tab PO DAILY Diltiazem 24Hr ER (Diltiazem HCl) 240 Mg Cap.er.24h 1 Cap PO DAILY Fluticasone-Salmeterol 250-50 (Fluticasone Propion/Salmeterol) 250 Mcg-50 Mcg/Dose Blst.w.dev 1 Puffs INH BID Citalopram HBr (Citalopram Hydrobromide) 10 Mg Tablet 15 Mg PO HS Lisinopril 20 Mg Tablet 1 Tab PO DAILY Past Medical History Past Medical History As in HPI Past Surgical History Surgical History Comment As in HPI Family History Family History: Family history was reviewed; no changes noted. Past Social History Social History Comment Deny illicit drug abuse tobacco alcohol use live with the family good social support Health Maintenance Health Maintenance Noncontributory ROS ROS Constitutional : no fever , no chills, patient has deconditioning and generalized weakness. No diaphoresis. Allergic/Immunologic, no lymphadenopathy, no hives, no skin eruptions. Eyes, no recent visual changes, no eye pain, no photophobia. Ears, nose, mouth, throat, no sore throat, no nosebleed, no ear pain. Cardiovascular, no palpitations, skipped beats, chest pain, no peripheral edema, Respiratory, no dyspnea, orthopnea, cough, hemoptysis, chest wall pain. Gastrointestinal, no abdominal pain, nausea, vomiting, constipation or diarrhea. : no dysuria, hematuria, pelvic pain, urethral d/c. Endocrine, no polyuria, polydipsia, recent unintentional weight gain or loss. Hematologic/Lymphatic, no petechiae, no enlarged lymph nodes, no bone pain. Integumentary, no rash, no skin lesions, Musculoskeletal, no muscle aches, or pain, no muscle cramps, no recent change in gait Neurological, no dizziness, no headache, no syncope, no paresthesia. Psychiatric, no delusions, visual hallucinations, or hearing hallucinations. ROS - in rest is as in HPI. Exam Vitals: Vital Signs Date Time Temp Pulse Resp B/P (MAP) Pulse Ox O2 Delivery O2 Flow Rate FiO2 12/21/25 13:32 72 16 114/50 (71) 93 01/28/25 11:17 Room Air* 0 21 01/28/25 06:02 98.0 Vital signs, stable ,afebrile. Pulse Oximetry reflects adequate oxygenation. BMI is 27, weight 52 kg General: well developed, well nourished. Awake , alert, and oriented x4, resting comfortably in the bed, in no acute distress . Skin: Warm, dry, no pallor, no rash or petechiae. HEENT: Atraumatic, normocephalic, EOMI, anicteric sclera B; pink conjunctiva; PERRLA, normal oropharynx, moist oral and nasal mucosa. Tympanic membrane , nose , throat clear. Neck: Trachea midline. Supple, full range of motion, no JVD, bruit , hepatojugular reflex , lymphadenopathy or masses, or other lesions Cardiac: Regular rhythm, regular rate no murmurs, rubs, or gallops. Normal S1 and S2, no S3 noticed. PMI is normal. Respiratory: Equal breath sounds bilaterally, no tachypnea; lungs clear to auscultation bilaterally, no wheezing ,rub or rales, or crackles. Chest wall is symmetric and without deformity. No signs of trauma. Chest wall is nontender. No signs of respiratory distress. Resonance is normal upon percussion bilaterally. Gastrointestinal: Abdomen symmetric, non-distended, soft, non-tender, normal bowel sounds x4 quadrant, normoactive, no hepatosplenomegaly , no masses , no bruit, no flank pain bilaterally. No voluntary guarding, rebound, or rigidity. No tenderness to percussion. No pulsatile masses. Equal femoral pulses. No Gordon's sign or McBurney point tenderness. Back; no CVA tenderness bilaterally, no deformities. Neck and back are without deformity as well. No tenderness noted on palpation of the spinous processes. Spinous processes are midline. Cervical, thoracic, and lumbar paraspinal muscles are not tender and are without spasm. : By patient is deferred Musculoskeletal: Extremities, normal range of motion, non-tender, muscle strength 5/5 x 4. Negative Homans signs bilaterally on lower extremity. Distal pulses full symmetrical, no clubbing, cyanosis , edema. Neurological: Speech is clear, alert, and oriented x 4. No motor or sensory deficit, deep tendon reflexes normal, cerebellar intact. Cranial nerves II-XII intact. Psych: Alert and or appropriate, normal affect. Vascular: Good distal pulses, which are equal x4; capillary refill less than 2 seconds. Lymphatic, no lymphadenopathy. Diagnostic Data Last Recorded Lab Results: 01/28/25 0952 01/28/25 0822 Advance Care Planning Advanced Care plannin - 30 Minutes Additional Plan Assessment right-sided pneumonia, community-acquired mixed boris Gram-positive Gram- negative UTI Generalized weakness associated with deconditioning Acute kidney injury secondary to vasomotor nephropathy COPD in exacerbation Chronic respiratory failure on home oxygen, in exacerbation Chronic fatigue syndrome in exacerbation Atrial fibrillation controlled ventricular rate Coronary artery disease history of [place] Chronic CHF ejection fraction 65% December 2024 Adrenal hyperplasia status post partial adrenalectomy on chronic steroids use Immunosuppression secondary to above Ex-smoker Comorbidities, chronic kidney disease, chronic pain syndrome, hypertension, rheumatoid arthritis, Plan IV fluids, antibiotics, steroids SVN DuoNeb, incentive spirometry, oxygen support therapy PT evaluation treatment CT chest abdomen pelvis pending Additional lab work pending Reconciled home medications DVT gastropathy prophylaxis addressed Sepsis Screening Reassessment Date: Jan 28, 2025 Date of Service: Jan 28, 2025 Billing Provider: LAXMI GARCIA MD Common Visit Codes: 95669-[id number] INP/OBS CARE (HIGH) Secondary Visit Codes: 93748-[id number] CARE PLAN 30 MINUTES LAXMI GARCIA MD Jan 28, 2025 15:54
[2025-01-28] MEDS ORDERED: morphine 4 MG/ML inj SYRINge IV PRN (15:55)
[2025-01-28] MEDS ORDERED: potassium Cl 40MEQ/1/2NS 520ml 520 ML IV PRN (15:55)
[2025-01-28] MEDS ORDERED: HYDROcodone/acetaminophen 10/325mg tab PO PRN (15:55)
[2025-01-28] MEDS ORDERED: mag hydrox/Alum hydrox/simeth 30ml oral suspension PO PRN (15:55)
[2025-01-28] MEDS ORDERED: ondansetron/PF 4mg/2ml inj IV PRN (15:55)
[2025-01-28] MEDS ORDERED: magnesium sulf-water 2g/50mL 50 ML IV PRN (15:55)
[2025-01-28] MEDS ORDERED: bisacodyl 10mg suppository rectal RC PRN (15:55)
[2025-01-28] MEDS ORDERED: HYDROcodone/acetaminophen 5mg/325mg tablet PO PRN (15:55)
[2025-01-28] MEDS ORDERED: magnesium Cl slow-release 64mg tablet PO PRN (15:55)
[2025-01-28] MEDS ORDERED: potassium Cl 20 mEq SR tablet PO PRN ×2 (15:55)
[2025-01-28] MEDS ORDERED: magnesium sulf-water 4G/100mL 100 ML IV PRN (15:55)
[2025-01-28] MEDS ORDERED: magnesium hydroxide 30ml (MOM) UD suspension PO PRN (15:55)
[2025-01-28] MEDS ORDERED: ipratropium/albuterol 3ml nebule NEB PRN (16:25)
[2025-01-28 16:33] LABS: MEAN PLATELET VOLUME 9.2 FL (7.4-10.4); RED CELL DISTRIBUTION WIDTH 13.3 % (11.5-14.5)
[2025-01-28 16:34] LABS: URINE AMPHETAMINE SCREEN NEGATIVE (Neg); URINE BARBITUATE SCREEN NEGATIVE (Neg); URINE BENZODIAZEPINES SCREEN NEGATIVE (Neg); URINE CANNABINOID SCREEN NEGATIVE (Neg); URINE COCAINE SCREEN NEGATIVE (Neg); URINE METHADONE SCREEN NEGATIVE (Neg); URINE OPIATE SCREEN NEGATIVE (Neg); URINE PHENCYCLIDINE SCREEN NEGATIVE (Neg)
[2025-01-28 16:37] LABS: APTT 25 SECONDS (22-32); INR 1.1 INR
[2025-01-28 16:46] LABS: PHOSPHORUS 3.4 MG/DL (2.3-4.5); PRO BRAIN NATRIURETIC PEPTIDE 209.0 PG/ML (0-450)
--- NOTE | 2025-01-28 17:11 | RADIOLOGY REPORT ---
EXAM: CT CT CHEST ABDOMEN PELVIS INDICATION: sepsis TECHNIQUE: Volumetric multidetector CT images of the chest, abdomen and pelvis were obtained after the administration of IV contrast. All CT scans at this facility use dose modulation, iterative reconstruction, and/or weight based dosing when appropriate to reduce radiation dose to as low as reasonably achievable. COMPARISON: DI CHEST,TWO VIEWS on DOS: 01/28/25 FINDINGS: LOWER NECK: Unremarkable LYMPH NODES/MEDIASTINUM: No abnormal lymph nodes by CT size criteria. CARDIOVASCULAR: Normal cardiac size. No pericardial effusion. No aneurysmal dilatation of the great vessels. Coronary artery calcifications. LUNG PARENCHYMA/PLEURAL SPACE: Mild centrilobular emphysema. 2-3 mm oval-shaped pulmonary nodules in the lungs. Areas of lobular air trapping. Small 3-4 mm oval-shaped pulmonary nodule located within the posterior basilar segment, right lower lobe. Trace possible paraseptal nodularity along the medial segment, right middle lobe (axial 37) and involving the lateral segment of the right middle lobe. Correlate for underlying infiltrate if clinically compatible. No pleural effusion or pneumothorax. CHEST WALL: Unremarkable. LIVER: Normal hepatic size without suspicious focal lesion. GALLBLADDER/BILIARY TREE: No cholelithiasis. SPLEEN: Unremarkable. PANCREAS: Unremarkable. ADRENAL GLANDS: Unremarkable KIDNEYS: Proteinaceous cysts of the right anterior kidney. No hydronephrosis. BLADDER: Bladder is decompressed limiting evaluation however correlate with clinical exam to exclude cystitis. PELVIC ORGANS: Unremarkable. BOWEL/MESENTERY: Paao-xh-xvamxybd stool burden. Novc-av-greaexom descending and sigmoid colonic diverticulosis. No CT evidence of bowel obstruction. ASCITES: Absent LYMPHADENOPATHY: No pathologically enlarged lymph nodes by CT size criteria VASCULATURE: No aneurysmal dilatation. ABDOMINAL WALL: Fat containing umbilical hernia, 8 mm neck, 2.7 cm sac. MUSCULOSKELETAL: Right hip arthroplasty. No acute fracture or aggressive focal osseous lesion. Multifocal degenerative change of the visualized spine. IMPRESSION: 1. Trace possible paraseptal nodularity along the medial segment, right middle lobe and involving the lateral segment of the right middle lobe. Superimposed patchy inconspicuous ground-glass opacities in the right lung base. 2. Correlate for underlying infiltrate if clinically compatible. 3. Grai-gd-frexyupv descending and sigmoid colonic diverticulosis. Sfrq-yg-guqkbqip stool burden. Correlate clinically to exclude constipation. 4. Bladder is decompressed limiting evaluation however correlate with clinical exam to exclude cystitis.
[2025-01-28] MEDS: heparin, porcine 5000 units/ml vial SQ SCH (20:00)
[2025-01-28] MEDS: docusate sod 100mg capsule PO SCH (20:00)
[2025-01-28] MEDS: K and/or MAG REPLACEMENT MC SCH (20:00)
[2025-01-28] MEDS: methylPREDNISolone sod succ/PF 40mg inj. IV SCH (20:26)
[2025-01-29] VITALS (10 sets, daily range): BP systolic 133–170; BP diastolic 59–74; PULSE 67–98; RESP 16–22; TEMP 97.4–98.5; O2SAT 95–99
[2025-01-29 02:33] LABS: MEAN PLATELET VOLUME 8.9 FL (7.4-10.4); RED CELL DISTRIBUTION WIDTH 13.2 % (11.5-14.5)
[2025-01-29 02:48] LABS: CREATININE 1.36 MG/DL (0.40-0.90); TOTAL CARBON DIOXIDE 24.6 MMOL/L (24-32); eCRCL 16 ML/MIN; eGFR 37 ML/MIN
[2025-01-29] MEDS ORDERED: ETAN50PE3 SQ (08:23)
[2025-01-29] MEDS: CefTRIAXone/D5W-Rocephin 1gm 50 ML IV SCH (08:39)
--- NOTE | 2025-01-29 14:32 | PROGRESS NOTE ---
Daily Progress Note Providers to CC Today, had an episode of constipation ~ Central Line/PICC still needed: No Nolasco-Non Protocol Nolasco Indications Met/Not Met: F/C Indications Not Met Antibiotic Timeout Antibiotic Ordered?: Yes MRSA Education MRSA Education Provided to pt: Yes Subjective As above Objective Vital Signs Date Time Temp Pulse Resp B/P (MAP) Pulse Ox O2 Delivery O2 Flow Rate FiO2 01/29/25 11:45 16 96 Nasal Cannula 2.0 01/29/25 10:00 97.7 77 136/66 (89) 01/29/25 09:51 28 Vital signs, stable ,afebrile. Pulse Oximetry reflects adequate oxygenation. Patient is on 2 L oxygen nasal cannula General: well developed, well nourished. Awake , alert, and oriented x4, resting comfortably in the bed, in no acute distress . Skin: Warm, dry, no pallor, no rash or petechiae. HEENT: Atraumatic, normocephalic, EOMI, anicteric sclera B; pink conjunctiva; PERRLA, normal oropharynx, moist oral and nasal mucosa. Tympanic membrane , nose , throat clear. Neck: Trachea midline. Supple, full range of motion, no JVD, bruit , hepatojugular reflex , lymphadenopathy or masses, or other lesions Cardiac: Regular rhythm, regular rate no murmurs, rubs, or gallops. Normal S1 and S2, no S3 noticed. PMI is normal. Respiratory: Equal breath sounds bilaterally, no tachypnea; lungs clear to auscultation bilaterally, no wheezing ,rub or rales, or crackles. Chest wall is symmetric and without deformity. No signs of trauma. Chest wall is nontender. No signs of respiratory distress. Resonance is normal upon percussion bilaterally. Gastrointestinal: Abdomen symmetric, non-distended, soft, non-tender, normal bowel sounds x4 quadrant, normoactive, no hepatosplenomegaly , no masses , no bruit, no flank pain bilaterally. No voluntary guarding, rebound, or rigidity. No tenderness to percussion. No pulsatile masses. Equal femoral pulses. No Gordon's sign or McBurney point tenderness. Back; no CVA tenderness bilaterally, no deformities. Neck and back are without deformity as well. No tenderness noted on palpation of the spinous processes. Spinous processes are midline. Cervical, thoracic, and lumbar paraspinal muscles are not tender and are without spasm. Musculoskeletal: Extremities, normal range of motion, non-tender, muscle strength 5/5 x 4. Negative Homans signs bilaterally on lower extremity. Distal pulses full symmetrical, no clubbing, cyanosis , edema. Neurological: Speech is clear, alert, and oriented x 4. No motor or sensory deficit, deep tendon reflexes normal, cerebellar intact. Cranial nerves II-XII intact. Psych: Alert and or appropriate, normal affect. Vascular: Good distal pulses, which are equal x4; capillary refill less than 2 seconds. Lymphatic, no lymphadenopathy. Result Diagram: 01/29/2521701/29/25217 Coagulation Studies Laboratory Tests Test 01/28/25 16:15 Prothrombin Time 10.9 SECONDS (9.0-12.0) INR International Normalized Ratio 1.1 INR Activated Partial Thromboplast Time 25 SECONDS (22-32) Coagulation Comments Problem\Assessment\Plan Assessment right-sided pneumonia, community-acquired mixed boris Gram-positive Gram- negative UTI Sepsis secondary to all of the above Generalized weakness associated with deconditioning Acute kidney injury secondary to vasomotor nephropathy COPD in exacerbation Chronic respiratory failure on home oxygen, in exacerbation Chronic fatigue syndrome in exacerbation Atrial fibrillation controlled ventricular rate Coronary artery disease history of [place] Chronic CHF ejection fraction 65% December 2024 Adrenal hyperplasia status post partial adrenalectomy on chronic steroids use Immunosuppression secondary to above Ex-smoker Comorbidities, chronic kidney disease, chronic pain syndrome, hypertension, rheumatoid arthritis, Plan IV fluids, antibiotics, steroids SVN DuoNeb, incentive spirometry, oxygen support therapy PT evaluation treatment CT chest abdomen pelvis completed Additional lab work pending Reconciled home medications DVT gastropathy prophylaxis addressed Date of Service: Jan 29, 2025 Billing Provider: LAXMI GARCIA MD Common Visit Codes: 06219-[id number] INP/OBS CARE(HIGH) LAXMI GARCIA MD Jan 29, 2025 14:32
[2025-01-29] MEDS: magnesium citrate 296ml oral solution PO ONE (15:20)
[2025-01-29] MEDS: hydrALAZINE 20mg/ml inj. IV PRN (17:35)
[2025-01-29] MEDS: polyethylene glycol 3350 17gm powd pack PO SCH (20:22)
[2025-01-29] MEDS: ondansetron 4mg rapidly disintigrating tab PO PRN (20:23)
[2025-01-29] MEDS: albuterol 2.5 MG/3 ML nebule NEB SCH (20:39)
[2025-01-29] MEDS: budesonide 0.5mg/2ml UD nebule IH SCH (20:39)
[2025-01-30] VITALS (9 sets, daily range): BP systolic 134; BP diastolic 63–64; PULSE 69–100; RESP 16–20; TEMP 97.7–98.7; O2SAT 95–98
[2025-01-30 05:14] LABS: MEAN PLATELET VOLUME 9.2 FL (7.4-10.4); RED CELL DISTRIBUTION WIDTH 13.1 % (11.5-14.5)
[2025-01-30 05:34] LABS: CREATININE 1.20 MG/DL (0.40-0.90); TOTAL CARBON DIOXIDE 27.4 MMOL/L (24-32); eCRCL 18 ML/MIN; eGFR 43 ML/MIN
[2025-01-30] MEDS: diltiazem CD 120mg capsule (once-daily) PO SCH (08:00)
[2025-01-30] MEDS ORDERED: AZIT500T PO (16:48)
--- NOTE | 2025-01-30 17:35 | DISCHARGE SUMMARY ---
Discharge Summary Providers to CC Feels fine today asking to be discharged home ~ Discharge Summary Assessment right-sided pneumonia, community-acquired mixed boris Gram-positive Gram-negati ve UTI Generalized weakness associated with deconditioning Acute kidney injury secondary to vasomotor nephropathy COPD in exacerbation Chronic respiratory failure on home oxygen, in exacerbation Chronic fatigue syndrome in exacerbation Atrial fibrillation controlled ventricular rate Coronary artery disease history of [place] Chronic CHF ejection fraction 65% December 2024 Adrenal hyperplasia status post partial adrenalectomy on chronic steroids use Immunosuppression secondary to above Ex-smoker Comorbidities, chronic kidney disease, chronic pain syndrome, hypertension, rheumatoid arthritis, Admission Diagnosis: UTI, CHRONIC RESPIRATORY FAILURE Admission Diagnosis Comment: right-sided pneumonia, community-acquired mixed boris Gram-positive Gram- negative UTI Generalized weakness associated with deconditioning Acute kidney injury secondary to vasomotor nephropathy COPD in exacerbation Chronic respiratory failure on home oxygen, in exacerbation Chronic fatigue syndrome in exacerbation Atrial fibrillation controlled ventricular rate Coronary artery disease history of [place] Chronic CHF ejection fraction 65% December 2024 Adrenal hyperplasia status post partial adrenalectomy on chronic steroids use Immunosuppression secondary to above Ex-smoker Comorbidities, chronic kidney disease, chronic pain syndrome, hypertension, rheumatoid arthritis, Hospital Course DATE OF ADMISSION: January 28 2025 DATE OF DISCHARGE: 2024 Discharge Diagnosis\\Comment: right-sided pneumonia, community-acquired mixed boris Gram-positive Gram- negative UTI Generalized weakness associated with deconditioning Acute kidney injury secondary to vasomotor nephropathy COPD in exacerbation Chronic respiratory failure on home oxygen, in exacerbation Chronic fatigue syndrome in exacerbation Atrial fibrillation controlled ventricular rate Coronary artery disease history of [place] Chronic CHF ejection fraction 65% December 2024 Adrenal hyperplasia status post partial adrenalectomy on chronic steroids use Immunosuppression secondary to above Ex-smoker Comorbidities, chronic kidney disease, chronic pain syndrome, hypertension, rheumatoid arthritis, Operations\\Procedures: Non Consultants: Non Complications: Non Condition on DC: Stable Discharge Summary: 83-year-old female with history of hypertension, AFib, rheumatoid arthritis, COPD, adrenal hyperplasia status post partial adrenalectomy on chronic steroids hydrocortisone presented to the ED with chief complaints of generalized weakness associated with fatigue x4 days. She states she was . Since the past four days she has had worsening weakness and felt lousy. On arrival she was hypoglycemic and hypotensive. She appears to be dehydrated. Apart from diarrhea she denies any complaints of chest pain, dizziness, shortness of breath, abdominal pain, fever, chills, weight loss or weight gain. Denies symptoms of UTI like burning micturition, lower belly pain, dysuria and polyuria. Her last bowel movement was four days ago when she had the diarrhea. Uses home oxygen 3 L p.r.n. specially on exertion. She lives by herself and is independent in daily activities. Quit smoking 50 years ago. Denies drinking alcohol, no recreational drugs. Discussed advanced care directives and she wishes to be a full code."The patient has a acute kidney injury on admission her creatinine was 1.73 this improved with the IV fluid resuscitation and on the day of discharge was 0.97 her acute kidney injury is possibly secondary to vasomotor nephropathy.The patient had a UTI with [place] [address] this normalized by the the patient was treated with a three day course of IV Rocephin the patient was afebrile and a urine culture was negative.The patient has a type 2 mi due to her sirs secondary to UTI her initial high sensitivity troponin 78 peaked at 139 initially the ED provider she stated the patient had had chest pressure with the patient denied any chest pressure and did not require any further cardiac workup in regards to stress test or cardiac catheterization., however an echocardiogram was obtained which demonstrated an LVEF of 65% there were no significant findings on echocardiogram.Patient was chronic respiratory failure secondary to COPD in his on 2-3 L oxygen at home in her oxygen saturation was in the mid-to-high 90s on the day of discharge on 2 L oxygen the patient did okayed with physical therapy however physical therapy recommended that the patient use a of front wheel walker when ambulating I did inform the patient that she needs to use her front wheel walker any time that she ambulated.84-year-old female with history of hypertension, AFib, rheumatoid arthritis, COPD, adrenal hyperplasia status post partial adrenalectomy on chronic steroids hydrocortisone presented to the ED with chief complaints of generalized weakness x4 days. No diarrhea she denies any complaints of chest pain, has dizziness, shortness of breath, abdominal pain, fever, chills, weight loss or weight gain. Denies symptoms of UTI like burning micturition, lower belly pain, dysuria and polyuria. Her last bowel movement was four days ago when she had the diarrhea. Uses home oxygen 3 L p.r.n. specially on exertion. She lives by herself and is independent in daily activities. Quit smoking 50 years ago. Denies drinking alcohol, no recreational drugs. Discussed advanced care directives and she wishes to be a full code."The patient has a acute kidney injury on admission her creatinine was 1.73 this improved with the IV fluid resuscitation and on the day of discharge was 0.97 her acute kidney injury is possibly secondary to vasomotor nephropathy.The patient had a UTI with SIRS [place] [address] this normalized by the 9 the patient was treated with a three day course of IV Rocephin the patient was afebrile and a urine culture was negative.The patient has UTI echocardiogram was obtained which demonstrated an LVEF of 65% there were no significant findings on echocardiogram.Patient was chronic respiratory failure secondary to COPD in his on 2-3 L oxygen at home in her oxygen saturation was in the mid-to-high 90s on the day of discharge on 2 L oxygen the patient did okayed with physical therapy however physical therapy recommended that the patient use a of front wheel walker when ambulating I did inform the patient that she needs to use her front wheel walker any time that she ambulated. In emergency department she was evaluated by physician was diagnosed with UTI, right-sided pneumonia, acute respiratory failure, and decision was made to admit patient for further evaluation and treatment, no additional complaint or concern. Patient was extensively evaluated treated, he will condition improved, today she asking to be discharged home, she will be discharged in stable condition, medication reconciled, follow-up PCP in the morning, today on physical exam, Vital signs, stable ,afebrile. Pulse Oximetry reflects adequate oxygenation. General: well developed, well nourished. Awake , alert, and oriented x4, resting comfortably in the bed, in no acute distress . Skin: Warm, dry, no pallor, no rash or petechiae. HEENT: Atraumatic, normocephalic, EOMI, anicteric sclera B; pink conjunctiva; PERRLA, normal oropharynx, moist oral and nasal mucosa. Tympanic membrane , nose , throat clear. Neck: Trachea midline. Supple, full range of motion, no JVD, bruit , hepatojugular reflex , lymphadenopathy or masses, or other lesions Cardiac: Regular rhythm, regular rate no murmurs, rubs, or gallops. Normal S1 and S2, no S3 noticed. PMI is normal. Respiratory: Equal breath sounds bilaterally, no tachypnea; lungs clear to auscultation bilaterally, no wheezing ,rub or rales, or crackles. Chest wall is symmetric and without deformity. No signs of trauma. Chest wall is nontender. No signs of respiratory distress. Resonance is normal upon percussion bilaterally. Gastrointestinal: Abdomen symmetric, non-distended, soft, non-tender, normal bowel sounds x4 quadrant, normoactive, no hepatosplenomegaly , no masses , no bruit, no flank pain bilaterally. No voluntary guarding, rebound, or rigidity. No tenderness to percussion. No pulsatile masses. Equal femoral pulses. No Gordon's sign or McBurney point tenderness. Back; no CVA tenderness bilaterally, no deformities. Neck and back are without deformity as well. No tenderness noted on palpation of the spinous processes. Spinous processes are midline. Cervical, thoracic, and lumbar paraspinal muscles are not tender and are without spasm. Musculoskeletal: Extremities, normal range of motion, non-tender, muscle strength 5/5 x 4. Negative Homans signs bilaterally on lower extremity. Distal pulses full symmetrical, no clubbing, cyanosis , edema. Neurological: Speech is clear, alert, and oriented x 4. No motor or sensory deficit, deep tendon reflexes normal, cerebellar intact. Cranial nerves II-XII intact. Psych: Alert and or appropriate, normal affect. Vascular: Good distal pulses, which are equal x4; capillary refill less than 2 seconds. Lymphatic, no lymphadenopathy. *Problems/Diagnosis: (1) UTI (urinary tract infection) Status: Acute (2) Pneumonia Status: Acute (3) Hypertension Status: Acute Total Time Spent on D/C: > 30 Minutes Date of Service: Jan 30, 2025 Billing Provider: LAXMI GARCIA MD Common Visit Codes: 55140-YXU/OBS DISCH DAY >30min LAXMI GARCIA MD Jan 30, 2025 17:35
[2025-02-01] MEDS ORDERED: HYDR-4318 PO (06:42)
[2025-02-01] MEDS ORDERED: FLUT1BLS9 INH (08:04)
[2025-02-03] MEDS ORDERED: ETANERCEPT 50 MG SQ SCH (08:00)
[2025-02-04] MEDS ORDERED: HYDR25TA90 PO (12:00)
[2025-02-04] MEDS ORDERED: ATOR40TA72 PO (12:00)
[2025-02-04] MEDS ORDERED: METO25TA6 PO (12:00)
[2025-02-04] MEDS ORDERED: APIX5TAB3 PO (13:58)
== END 2025-01-30 17:15 | disposition home or self-care (01) | DRG 871 ==
LOC: ER 06:01 → ED HOLD 16:00 → SUR 3N 01-29 07:48
PROVIDERS: ADMIT Family Medicine; ATTEND Family Medicine
PROC: BW251ZZ Computerized Tomography (CT Scan) of Chest, Abdomen and Pelvis using Low Osmolar Contrast (ICD-10-PCS; principal; 2025-01-28)
DX: A41.9 Sepsis, unspecified organism (principal); I21.A1 Myocardial infarction type 2; J15.69 Pneumonia due to other Gram-negative bacteria; J15.9 Unspecified bacterial pneumonia; N17.0 Acute kidney failure with tubular necrosis; J96.20 Acute and chronic respiratory failure, unspecified whether with hypoxia or hypercapnia; D84.9 Immunodeficiency, unspecified; J44.0 Chronic obstructive pulmonary disease with (acute) lower respiratory infection; N39.0 Urinary tract infection, site not specified; Z79.01 Long term (current) use of anticoagulants; I13.0 Hypertensive heart and chronic kidney disease with heart failure and stage 1 through stage 4 chronic kidney disease, or unspecified chronic kidney disease; N18.9 Chronic kidney disease, unspecified; M06.9 Rheumatoid arthritis, unspecified; J44.1 Chronic obstructive pulmonary disease with (acute) exacerbation; I48.91 Unspecified atrial fibrillation; G93.32 Myalgic encephalomyelitis/chronic fatigue syndrome; I50.9 Heart failure, unspecified; K59.00 Constipation, unspecified; E16.2 Hypoglycemia, unspecified; E27.8 Other specified disorders of adrenal gland; I25.10 Atherosclerotic heart disease of native coronary artery without angina pectoris; Z79.899 Other long term (current) drug therapy; Z79.82 Long term (current) use of aspirin; Z88.1 Allergy status to other antibiotic agents; Z87.891 Personal history of nicotine dependence; Z99.81 Dependence on supplemental oxygen; I25.2 Old myocardial infarction
CPT/HCPCS: 36415; 71046; 71250; 74150; 80048; 80053; 80305; 81001; 83605; 83735; 83880; 84100; 84443; 84484; 85025; 85610; 85730; 87040; 87081; 87088; 93005; 94640; 94760; 96365; 96366; 96368; 96375; 99285; A4615; G0378; J0360; J0456; J0696; J1644; J2919; J7030